=== PATIENT | female | born 1980 | race Hispanic/Latino ===

== ENCOUNTER 2020-04-03 08:25 | Emergency (ER) | payer OTHER ==
[~2020-04-03] VITALS: Ht 152.4 cm; Wt 99.8 kg
[2020-04-03] MEDS ORDERED: KETOROLAC TROMETHAMINE 60 MG/2 ML VIAL IM ONE (08:45)
[2020-04-03] MEDS ORDERED: DIAZEPAM 5 MG TAB PO PRN (08:45)
[2020-04-03] MEDS ORDERED: HYDROCODONE/APAP 10MG-325MG TAB PO ONE (08:45)
[2020-04-03] MEDS ORDERED: ULTRAM50 MG PO (10:44)
[2020-04-03 11:09] VITALS: BP 136/65
== END 2020-04-03 11:10 | disposition home or self-care (01) ==
LOC: ER 08:40
DX: M25.512 Pain in left shoulder (principal); S43.402A Unspecified sprain of left shoulder joint, initial encounter; V43.62XA Car passenger injured in collision with other type car in traffic accident, initial encounter; Y92.488 Other paved roadways as the place of occurrence of the external cause; F17.210 Nicotine dependence, cigarettes, uncomplicated
CPT/HCPCS: 71045; 73030; 99284; J1885